=== PATIENT | female | born 1950 | race Caucasian/White ===

== ENCOUNTER 2023-09-20 11:56 | Emergency (ER) | payer MEDICARE, OTHER ==
--- NOTE | 2023-09-20 12:27 | ED Physician Documentation ---
PD HPI BACK PAIN - Stated complaint Stated Complaint: LOWER BACK PX - Chief complaint Chief Complaint: Trauma Ch/Bk - Additional information Additional information: 73-year-old female with history of osteoarthritis, osteoporosis, urinary inco ntinence, spinal surgery from an L4 fracture, hysterectomy presents emergency department for lower back pain. Patient says that she was outside working in yard and was attempting to tip birdbath and felt a large pop/cracking sensation in her lower back. She then moved to manage to sit down to try to alleviate the pain and had a large episode of incontinence. Patient says that she did feel an urge to void but was unable to make it to the bathroom. Says this episode of incontinence feels similar to previous episodes of incontinence although the volume was larger than normal. No recent fevers or chills No nausea vomiting she denies any numbness or tingling in between her legs and she is able to ambulate no new weaknessPatient reports a 1 out of 10 back pain at rest pain increases in severity with any twisting motion or sensation or any palpation to the actual area that she felt a popping sensation. PD PAST MEDICAL HISTORY - Past Medical History Past Medical History: Yes Cardiovascular: None Respiratory: None Neuro: None Endocrine/Autoimmune: HyPOthyroidism GI: None ENAMEL APPLIER: None : Incontinence HEENT: None Psych: None Musculoskeletal: Osteoarthritis, Osteoporosis, Chronic back pain Derm: None - Past Surgical History Past Surgical History: Yes Ortho: Spine surgery /ENAMEL APPLIER: Hysterectomy - Present Medications Home Medications: Ambulatory Orders Medication Instructions Recorded Confirmed Levothyroxine Sodium [Synthroid] 25 mcg ORAL DAILY 09/20/23 09/20/23 - Allergies Allergies/Adverse Reactions: Allergies Allergy/AdvReac Type Severity Reaction Status Date / Time No Known Drug Allergies Allergy Verified 09/20/23 12:25 - Social History Does the pt smoke?: No Smoking Status: Never smoker Does the pt drink ETOH?: No Does the pt have substance abuse?: No - Immunizations Immunizations are current?: Yes - POLST Patient has POLST: No PD ED PE NORMAL - Vitals Vital signs reviewed: Yes - General General: Alert and oriented X 3, No acute distress, Well developed/nourished - HEENT HEENT: Atraumatic, PERRL - Neck Neck: No bony TTP - Cardiac Cardiac: RRR - Respiratory Respiratory: No respiratory distress - Neuro Neuro: Alert and oriented X 3, stock receiver 2-12 intact, No motor deficit, No sensory deficit, Normal speech - Psych Psych: Normal mood, Normal affect - Free text exam Free text exam: Neck and back are without deformity, external skin changes, or signs of trauma. Curvature of the cervical, thoracic, and lumbar spine are within normal limits. Bony features of the shoulders and hips are of equal height bilaterally. Posture is upright, gait is smooth, steady, and within normal limits although slow. Tenderness to sacral/spine area with palpation. Spinous processes are midline. Cervical, thoracic, and lumbar paraspinal muscles are not tender and are without spasm. There is discomfort noted with flexion, extension, and [id number] rotation of sacral regions. Straight leg raise test is negative bilaterally. Sensation to the upper and lower extremities is normal bilaterally. No clonus is noted. Datastage Architect strength is normal bilaterally. Dorsi/plantar flexion is normal bilaterally. Results - Vitals Vitals: Vital Signs - 24 hr 09/20/23 09/20/23 12:03 14:33 Temperature 36 C L Heart Rate 72 75 Respiratory 16 20 Rate Blood Pressure 126/67 150/82 H O2 Saturation 100 98 Oxygen O2 Source Room air - Rads (name of study) Lumbar spine CT without Relevant Findings:: Final report received, EMP independent interpretation of te st, Other (No acute findings, Mild compression deformity of L3 status post vertebroplasty) PD Medical Decision Making - ED course ED course: 73-year-old female presents emergency department for lumbar pain. Differentials include but are not limited to fracture, contusion, nerve compression, strain. CT lumbar was complete for further evaluation of the tenderness to her sacral area. CT did not reveal any acute abnormalities or findings Of the lumbar or sacral region. She was found to have mild central compression deformity at the inferior endplate of L1 versus large Schmorl's node this is not an area of pain or tenderness for the patient and this is most likely due to the injury that she had which required the L3 vertebroplasty years ago from a crush injury. She originally told triage nurse that she had episode of incontinence immediately after the injury but for here in the emergency department she has had no episode s of continence in fact she is felt an urge to void was able to retain her urine ambulate to the bathroom and void without any difficulty. She denies any numbness tingling or paresthesias to her inner legs or thighs which is why decided to hold off on the MRI at this point in time. Patient was offered Tylenol ibuprofen or Toradol and she declined any medications. Patient was seen able to ambulate without any difficulty although slow no weakness. She is told to follow-up with her primary care provider for further evaluation patient says that she plans on following up with her medical office representative to help with pain control. Return precautions given all questions answered. Departure - Departure Disposition: 01 Home, Self Care Clinical Impression: Lumbar pain Instructions: ED Back Care Tips, ED Low Back Pain Injury Comments: Thank you for trusting us with your care. We have completed a CT of your lower back and we are not seeing any acute abnormalities or findings at this time. Attached is the radiology results. We offered Tylenol ibuprofen here in the emergency department and he declined. I would recommend going home and icing for 20 minutes at a time 1 hour off and continuing to stay ambulatory and moving. I would strongly encourage you to consider taking Tylenol or ibuprofen for lower back pain. As we discussed if your pain has not improved or gotten worse after 7 to 10 days please report to your primary care provider for further imaging. FINDINGS: Image quality: Excellent. Bones: Straightening of normal lumbar lordosis. Diffusely decreased osseous mineralization. Mild compression deformity of L3 status post vertebroplasty. There are multilevel degenerative changes of the lumbar spine with facet arthropathy and disc height loss with degenerative endplate changes and marginal spurring. This is most pronounced at L4-5. Mild central compression deformity inferior endplate of L1 versus large Schmorl's node. Moderate right L4-5 neural foraminal stenosis. Otherwise, no high-grade neuroforaminal stenosis. Central canal is patent.. No suspicious lytic or blastic bony lesions. Central spinal caliber is of normal overall caliber. No pars defects. Soft tissues: No retroperitoneal masses or hematomas. Visualized aorta is normal in caliber. Atherosclerotic vascular calcifications. Diverticulosis within the visualized colon without evidence of acute diverticulitis. IMPRESSION: 1.Mild central compression deformity at the inferior endplate of L1 versus large Schmorl's node. 2.Mild compression deformity of L3 status post vertebroplasty. 3.Degenerative changes of the lumbar spine. Forms: PCP List Discharge Date/Time: 09/20/23 14:33
--- NOTE | 2023-09-20 13:55 | CT Report ---
PROCEDURE: Lumbar Spine WO INDICATIONS: sacrum pain TECHNIQUE: Noncontrast 3 mm thick sections acquired from the T12 level to the sacrum. Sagittal and coronal refo rmats were constructed. For radiation dose reduction, the following was used: automated exposure co ntrol, adjustment of mA and/or kV according to patient size. COMPARISON: None. FINDINGS: Image quality: Excellent. Bones: Straightening of normal lumbar lordosis. Diffusely decreased osseous mineralization. Mild comp ression deformity of L3 status post vertebroplasty. There are multilevel degenerative changes of the lumbar spine with facet arthropathy and disc height loss with degenerative endplate changes and giselle nal spurring. This is most pronounced at L4-5. Mild central compression deformity inferior endplate o f L1 versus large Schmorl's node. Moderate right L4-5 neural foraminal stenosis. Otherwise, no high-g rade neuroforaminal stenosis. Central canal is patent.. No suspicious lytic or blastic bony lesions. Central spinal caliber is of normal overall caliber. No pars defects. Soft tissues: No retroperitoneal masses or hematomas. Visualized aorta is normal in caliber. Ather osclerotic vascular calcifications. Diverticulosis within the visualized colon without evidence of ac jace diverticulitis. IMPRESSION: 1.Mild central compression deformity at the inferior endplate of L1 versus large Schmorl's node. 2.Mild compression deformity of L3 status post vertebroplasty. 3.Degenerative changes of the lumbar spine. Reviewed by: Gustavo Redd MD on 09/20/2023 1:53 PM PDT Approved by: Gustavo Redd MD on 09/20/2023 1:53 PM PDT Station ID: [id number]
[2023-09-20 14:41] VITALS: BP 150/82; O2SAT 98
== END 2023-09-20 14:33 | disposition home or self-care (01) ==
LOC: ED 11:56
DX: M54.50 Low back pain, unspecified (principal); E03.9 Hypothyroidism, unspecified; Z79.899 Other long term (current) drug therapy
CPT/HCPCS: 99284